=== PATIENT | male | born 1945 | race Caucasian/White ===

== ENCOUNTER 2020-12-28 12:47 | Emergency (ER) | payer MEDICARE, OTHER, SELFPAY ==
--- NOTE | 2020-12-28 12:56 | ED.EXTPRO ---
HPI - Extremity Problem General Chief complaint: Extremity Injury, Lower Stated complaint: Lt big toe pain Time Seen by Provider: 12/28/20 13:18 Source: patient and RN notes reviewed Mode of arrival: ambulatory Limitations: no limitations History of Present Illness HPI Narrative: 75-year-old male presents with concern for pain, redness, swelling, warmth to the first digit of the left foot. Reports pain is been there for several days, denies injury, trauma, open skin. Denies fever, red streaking. He denies intervention. Denies any history of gout. Reports he is concerned about taking medication before having a dental surgery on . He has been unable to take NSAIDs due to surgery. MD Complaint: extremity swelling Related Data Home Medications Medication Instructions Recorded Confirmed alprazolam 12/28/20 apixaban [Eliquis] mg 12/28/20 hydrochlorothiazide 12/28/20 imipramine HCl 12/28/20 levothyroxine 12/28/20 lisinopril 12/28/20 metoprolol succinate PO 12/28/20 rosuvastatin mg 12/28/20 sildenafil 12/28/20 tamsulosin mg PO 12/28/20 Allergies Allergy/AdvReac Type Severity Reaction Status Date / Time morphine AdvReac Intermediate Confusion Verified 12/28/20 13:12 Review of Systems Review of Systems: CONSTITUTIONAL: Denies malaise, chills, sweats, or fever. SKIN: Reports redness, warmth, swelling, tenderness to the first digit of the left foot MUSCULOSKELETAL: Reports pain, swelling to the first digit of the left foot NEUROLOGIC: Denies numbness, weakness All systems reviewed & are unremarkable except as noted in HPI and below PMFSH Comments At time of signature, agree with nursing past medical, surgical, social and family history. There is no relevant family history pertinent to the presenting complaint Exam Narrative: GENERAL: Well-appearing, well-nourished, and in no acute distress. HEAD: Normocephalic, atraumatic. EYES: PERRLA, conjunctivae clear NECK: Supple. CHEST: Speaks in full sentences. No respiratory distress. HEART: Regular rate and rhythm. Normal and equal peripheral pulses. EXTREMITIES: First digit on left foot has normal strength and sensation, grossly normal range of motion. Moderate warmth, edema and erythema, no ecchymosis. 5/5 strength with digit flexion and extension. Normal sensation with sensitivity to light touch and pain. Generalized digit tenderness. No open wounds, no skin tenting, no devitalized tissue or atrophy, no trophic changes, no obvious deformity, alignment normal, nearby joints and structures intact. Distal pulses palpable and equal bilaterally, skin warm, dry, pink. Capillary refill less than 3 seconds. SKIN: Warm, dry, no rash. NEURO: Alert and oriented x3. PSYCH: Normal mood and affect Course Course Emergency Course: Patient is aware of diagnosis, understands and agrees to treatment plan. Anticipatory guidance given. Patient agrees to follow-up as directed and is aware of reasons to seek care at the emergency department. Portions of this record may have been created with voice recognition software Vital Signs Vital signs: Reviewed. MDM - Extremity (Nontraumatic) MDM Narrative Medical decision making narrative: Exam findings show no acute concerns or changes; patient is non-toxic appearing and is in no distress. Patient is appropriate for outpatient treatment and follow-up. Differential Diagnosis Differential diagnosis: Likely gout, cellulitis and other (Muscle skeletal injury) Critical Care Time Critical Care Time Critical Care Time: No Discharge Plan Discharge Clinical Impression: Gout Qualifiers: Gout site: toe Gout etiology: idiopathic Chronicity: acute Laterality: left Qualified Code(s): M10.072 - Idiopathic gout, left ankle and foot Patient Disposition: Home, Self-Care Condition: Stable Instructions: Low Purine Diet (ED), Gout (ED) Additional Instructions: Please follow up with your Primary Care Doctor If symptoms do not im
[2020-12-28 13:03] VITALS: BP 142/60; PULSE 62; RESP 18; TEMP 36.6; O2SAT 98
== END 2020-12-28 13:35 | disposition home or self-care (01) ==
PROVIDERS: Emergency Provider Nurse Practitioner; PCP Internal Medicine
DX: M10.9 Gout, unspecified (principal); I48.91 Unspecified atrial fibrillation; E78.00 Pure hypercholesterolemia, unspecified; I10 Essential (primary) hypertension; E03.9 Hypothyroidism, unspecified; Z85.038 Personal history of other malignant neoplasm of large intestine
CPT/HCPCS: 99213; G0463